=== PATIENT | female | born 1990 | race Caucasian/White ===

== ENCOUNTER 2017-01-28 10:06 | Inpatient (IN) ==
[2017-02-01] MEDS ORDERED: CARBOPROST 250 MCG/ML INJECTION IM PRN (00:47)
[2017-02-01] MEDS ORDERED: MAG-AL + SIM ORAL LIQUID 30ml PO PRN (00:47)
[2017-02-01] MEDS ORDERED: CALCIUM CARBONATE Chewable 500mg TABLET PO PRN (00:47)
[2017-02-01] MEDS ORDERED: ACETAMINOPHEN 500 MG TABLET PO PRN (00:47)
[2017-02-01] MEDS ORDERED: METHYLERGONOVINE 0.2 MG/ML INJECTION IM PRN (00:47)
--- OUTSIDE RECORDS SUMMARY | 2017-02-01 00:52 | External Medical Summary | Continuity of Care Document ---
:1990 Author Organization [facility] Address [address] [place], [place] [id number] Phone Care Team Providers Name Role Phone Junitoshraddha DO, Ora Unavailable Unavailable Allergies, Adverse Reactions, Alerts Substance Reaction Severity Status hydrocortisone rash Unknown Active Medications Medication Instructions Dosage Effective Dates Status Comments (start - stop) Vitamin take 1 tablet by Not Available - Active tablet oral route every day Fdgb-Vrhm-Ysdnn - Active (vit C-biotin) 50 mg-1,250 mcg chewable tablet Problems Condition Effective Dates (start - stop) Clinical Status Encntr for suprvsn of normal first - preg, third trimester 32 weeks gestation of - Encntr screen for infections w sexl - mode of transmiss Encounter for screening for oth - infec/parastc diseases Encntr for suprvsn of normal first - preg, first trimester Encounter for screening of - mother 9 weeks gestation of - Matern care for oth or susp poor fetl - grth, 1st tri, unsp 13 weeks gestation of - Matern care for oth or susp poor fetl - grth, 2nd tri, unsp Encntr for suprvsn of normal first - preg, second trimester 18 weeks gestation of - Encntr for suprvsn of normal first - preg, second trimester 18 weeks gestation of - Encntr for suprvsn of normal first - preg, second trimester 22 weeks gestation of - Encntr for suprvsn of normal first - preg, second trimester 24 weeks gestation of - Encntr for suprvsn of normal first - preg, second trimester 26 weeks gestation of - Encntr for suprvsn of normal first - preg, third trimester 28 weeks gestation of - Type B blood, Rh negative - Encntr for suprvsn of normal first - preg, third trimester 30 weeks gestation of - Encntr for suprvsn of normal first - preg, third trimester 34 weeks gestation of - Procedures Procedure Date OB Visit No Charge Results Test Name Date and Time Measure Units Reference Range Abnormal Flag Comments Unknown Advance Directives Directive Yes / No Effective Date File Name Unknown Encounters Encounter Practice Location Reason(s) Diagnoses Date Provider Care Team Description For Visit Members Lola Ledezma Encntr for Dec- Wan Referring In Womens suprvsn of normal 8-201 Sherrie. Provider: Estela TANG, first preg, third 7 700 Ora [address] [email or web address] weeks [facility], 1522, gestation of Center [address] [place] [address], [place], 120, [place] [id number], [place], [address], [place], tel: [phone] [place], [phone]. [phone] , [place]. tel: tel: [phone] Lola Ledezma Encntr for Nov- Wan Referring In Womens suprvsn of normal 4-201 Sherrie. Provider: Estela TANG, first preg, third 7 700 Ora PO Box [email or web address] weeks Medical Sleshraddha B, 1522, gestation of Center [address] [place] [address], [place] [facility], 120, Center [id number], [place], [address], [place], tel: [phone] [place], [phone]. [id number] , [place]. tel: tel: [phone] Lola Ledezma Encntr for Aug-1 Wan Referring In Womens suprvsn of normal 1-201 Sherrie. Provider: Health KITTY, first preg, third 7 700 Ora PO Box [email or web address] weeks Medical Sle[place]ta B, 1522, gestation of Center [address], [place], 120, [place] [id number], [place], [address], [place], tel:[phone] [place], [address] , [place]. tel: tel: [phone] Lola Ledezma Encntr for Pradeep-2 Wan Referring In Womens suprvsn of normal 8-201 Sherrie. Provider: Estela TANG, first preg, third 7 700 Ora PO Box [email or web address] weeks Medical [place]ta B, 1522, gestation of Center [address] [place] [address], pregnancyType B [place], blood, Rh 120, Center [id number], negative [place], [address], [place], tel:[phone] [place], [address]. , [place]. tel: tel: [phone] Lola Ledezma Encntr for Pradeep-1 Wan Referring In Womens suprvsn of normal 3-201 Sherrie. Provider: Estela TANG, first preg, 7 700 Ora PO Box second Medical [place], 1522, [email or web address] weeks Center [address], gestation of [place], 120, Center [id number], [place], [address], [place], tel:[phone] [place], [address]. , [place]. tel: tel: [phone] Lola Ledezma Encntr for Shayan-2 Goldberg Referring In Womens suprvsn of normal 7-201 Elvia. Provider: Estela TANG, first preg, 7 700 Ora PO Box second Medical [place], 1522, [email or web address] weeks Center [address], gestation of [place], 120, Center [id number], [place], [address], [place], tel:[phone] [place], [address]. , [place]. tel: tel: [phone] Lola Ledezma Encntr for Shayan- Wan Referring In Womens suprvsn of normal Sherrie. Provider: Estela TANG, first preg, 7 700 Ora PO Box second Medical [place] B, 1522, [email or web address] weeks Center [address], gestation of [place], 120, Center [id number], [place], [address], [place], tel:[phone] [place], [address] , [place]. tel: tel: [phone] Lola Ledezma Encntr for May- Wan Referring In Womens suprvsn of normal Sherrie. Provider: Estela TANG, first preg, 7 700 Ora PO Box second Medical [place] B, 1522, [email or web address] weeks Center [address] [place] [address], gestation of [place], 120, Center [id number], [place], [address], [place], tel:[phone] [place], [address] , [place]. tel: tel: [phone] Lola Ledezma Matern care for May- Wan Referring In Womens Ultrasound oth or susp poor - Sherrie. Provider: Estela TANG, fetl grth, 2nd 7 700 Ora PO Box tri, unspEncntr Medical [facility] B, 1522, for suprvsn of Center [address], normal first [place], preg, second 120, Center [id number], [email or web address] weeks [place], [address], [place] gestation of [place], tel: [phone] [place], [address]. , [place]. tel: tel: [phone] Lola Ledezma Matern care for Apr-1 Wan Referring In Womens oth or susp poor 2-201 Sherrie. Provider: Estela TANG, fetl grth, 1st 7 700 Ora PO Box tri, [email or web address] weeks Medical Sleshraddha Kline, 1522, gestation of Center [address] [place] [address], [place], 120, Center [id number], [place], [address], [place], tel: [phone] [place], [address]. , [place]. tel: tel: [phone] [facility] [place] Encannie screen for Jun- Wan Referring In Womens infections w sexl 5-201 Sherrie. Provider: [facility], mode of 7 700 Ora [facility], 1522, r for screening [address], for oth , [facility], infec/parastc 120, Center [id number], diseasesEncntr [place], [address], [place] for suprvsn of [place], tel: normal first [phone] [place], [address]. preg, first , [place]. tel: trimesterEncounte tel: [phone] r for [phone] screening of mother9 weeks gestation of Family History Family Member Diagnosis Age At Onset No family history of Lung Disease No family history of Colon Cancer No family history of Thyroid Disorder No family history of Osteoporosis No family history of Diabetes No family history of Uterine Cancer No family history of Hypertension No family history of Stroke No family history of Epilepsy Maternal grandmother Cancer, breast 80 No family history of Cardiovascular Disease No family history of Ovarian Cancer Maternal Grandmother Alzheimers No family history of Kidney Disease Immunizations Vaccine Date Status Comments Tdap completed Source: Source Unspecified Rhophylac completed Source: New Immunization Record Payers Payer name Insurance type Covered republican ID Authorization(s) [facility] [id number] [facility] [id number] Social History Type Description Quantity Date Captured Alcohol Use Details No Caffeine Use Details Unknown Tobacco Use Status Never smoked tobacco Smoking Status Never smoker Vital Signs Date / Height Weight BMI Pulse Blood Temperature Respiratory Body Head BMI Time: Rate Pressure Rate Surface Circumference percentile Area 150.00 26.5 /2017 lbs 7 mm[Hg] 11:06 kg/m AM eter (2) Chief Complaint And Reason For Visit Unknown Chief Complaint And Reason For Visit Reason For Referral Reason For Referral Unknown Plan Of Care Date Type Action Status Appointment Joya Stewart BOOKED Future Order: Radiology Order Complete OB Ultrasound > 14 Ordered Weeks ([id number]) Date Type Problem Goal Intervention Status Start Date Unknown. History Of Present Illness Encounter Date Complaint History Of Present Illness This patient has no known history of present illness Functional Status Encounter Date Functional Assessment Cognitive Assessment Unknown Medications Administered Medication Instructions Dosage Effective Dates (start - stop) Status Comments Drug Treatment Unknown Instructions Date Instruction Additional Information ACOG Book 2nd Trim Quad Screen pamphlet RH Neg ACOG pamphlet HIV and other routine tests risk factors identified by history anticipated course of care nutrition and weight gain counseling, special diet toxoplasmosis precautions (cats / raw meat) sexual activity exercise indications for ultrasound influenza vaccine environmental / work hazards travel tobacco (ask, advise, assess, assist and arrange) alcohol illicit / recreational drugs use of any medications (including supplements, vitamins, herbs, OTC drugs) smoking counseling domestic violence seat belt use childbirth classes / hospital facilities hospital registration genetic testing new ob handbook Zika virus assessment & precautions
--- OUTSIDE RECORDS SUMMARY | 2017-02-01 00:52 | External Medical Summary | Continuity of Care Document ---
:1990 Author Organization [facility] Address [address] [place], [place] [id number] Phone Care Team Providers Name Role Phone Antmateo DO, Ora Unavailable Unavailable Allergies, Adverse Reactions, Alerts Substance Reaction Severity Status hydrocortisone rash Unknown Active Medications Medication Instructions Dosage Effective Dates Status Comments (start - stop) Vitamin take 1 tablet by Not Available - Active tablet oral route every day Gndi-Fpfm-Lfirh - Active (vit C-biotin) 50 mg-1,250 mcg chewable tablet Problems Condition Effective Dates (start - stop) Clinical Status Decreased movements, third - trimester, unsp 37 weeks gestation of - Encntr screen for [...] second trimester 18 weeks gestation of - Decreased movements, third - trimester, unsp 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 - complicating 40 weeks gestation of - Encntr for suprvsn [...] of normal first - preg, third trimester 37 weeks gestation of - Encntr for suprvsn of normal first - preg, third trimester 34 weeks gestation of - Encntr for suprvsn of normal first - preg, third trimester 30 weeks gestation of - Encntr for suprvsn of normal first - preg, third trimester 38 weeks gestation of - Encntr for suprvsn of normal first - preg, third trimester 32 weeks gestation of - Encntr for suprvsn of normal first - preg, third trimester 39 weeks gestation of - Encntr for suprvsn of normal first - preg, third trimester 28 weeks gestation of - Type B blood, Rh negative - Encntr for suprvsn of normal first - preg, third trimester Encounter for screening of - mother 36 weeks gestation of - Procedures Procedure Date non-stress test 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 Provider: Health PA, trimester, 7 700 Ora PO Box unspStreptococcus [facility], 1522, B carrier state Center [address] [place] [address], complicating , [place], [email or web address] weeks 120, Center [id number], gestation of [place], [address], [place], tel:+ [phone] [place], [address]. [address] , [place]. tel: tel: [phone] Lola Ledezma Encntr for Oct-1 Wan Referring In [facility]ens [facility] normal 2-201 Sherrie. Provider: Health KITTY, first preg, third 7 700 Ora PO Box [email or web address] weeks [facility], 1522, gestation of Center [facility] [place], , [place], 120, Center [id number], [place], [address], [place], tel:+ [phone] [place], [address]. [address] , [place]. tel: tel: [phone] Parkr for Oct-0 Wan Referring In Women suprvsn of normal 3-201 Sherrie. Provider: Health IKTTY, first preg, third 7 700 Ora PO Box [email or web address] weeks Medical [facility], 1522, gestation of Center [facility] [place], [place], 120, Center [id number], [place], [address], [place], tel:+ [phone] [place], [address]. [address] , [place]. tel: tel: [phone] Parkr for Sep-2 Wan Referring In Women suprvsn of normal 8-201 Sherrie. Provider: Health KITTY, first preg, third 7 700 Ora PO Box [email or web address] weeks [facility], 1522, gestation of Center [address] [place] [address], [place], 120, Center [id number], [place], [address], [place], tel:+ [phone] [place], [phone]. [phone] , [place]. tel: tel: [phone] Lola Ledezma Decreased Sep-2 Niño Referring In Womens movements, third 7-201 Kya. Provider: Health PA, trimester, unsp37 7 700 Ora PO Box weeks gestation [facility] [place], 1522, of Center [facility] [place], , [facility], 120, Center [id number], [place], [address], [place], tel:+ [phone] [place], [address]. , [place]. tel: tel: [phone] Lola Ledezma Encntr for Sep-2 Wan Referring In Womens suprvsn of normal 1-201 Sherrie. Provider: Health KITTY, first preg, third 7 700 Ora PO Box trimesterEncounte [facility], 1522, r for Center [address] [place] [address], screening of , [facility] [place], [email or web address] weeks 120, Center [id number], gestation of [place], [address], [place], tel:[phone] [place], [address]. , [place]. tel: tel: [phone] Lola Parkr for Sep-0 Wan Referring In Womens suprvsn of normal 8-201 Sherrie. Provider: Estela TANG, first preg, third 7 700 Ora PO Box [email or web address] weeks [facility], 1522, gestation of Center [address] [place] [address], , [place], 120, Center [id number], [place], [address], [place], tel:[phone] [place], [address]. , [place]. tel: tel: [phone] Lola Lubinntr for Aug-2 Wan Referring In Womens suprvsn of normal 4-201 Sherrie. Provider: Health KITTY, first preg, third 7 700 Ora PO Box weeks [facility], 1522, gestation of Center [address] [place] [address], , [place], 120, Center [id number], [place], [address], [place], tel:[phone] [place], [address]. , [place]. tel: tel: [phone] Lola Ledezma Encntr for Aug- Wan Referring In Womens suprvsn of normal 1-201 Sherrie. Provider: Health PA, first preg, third 7 700 Ora PO Box [email or web address] weeks Medical [place]ta B, 1522, gestation of Center [address] [place], [place], 120, Center [id number], [place], [address], [place], tel:[phone] [place], [address] , [place]. tel: tel: [phone] Lola Ledezma Encntr for Oct-2 Wan Referring In Womens suprvsn of normal 8-201 Sherrie. Provider: Health KITTY, first preg, third 7 700 Ora PO Box [id number] weeks Medical [place] B, 1522, gestation of Center [address] [place] [address], pregnancyType B [place], blood, Rh 120, Center [id number], negative [place], [address], [place], tel:[phone] [place], [address]. , [place]. tel: tel: [phone] Lola Ledezma Encntr for Oct- Wan Referring In Womens suprvsn of normal 3-201 Sherrie. Provider: Estela TANG, first preg, 7 700 Ora PO Box second Medical [place], 1522, [email or web address] weeks [facility], gestation of [place], 120, Center [id number], [place], [address], [place], tel:[phone] [place], [address]. , [place]. tel: tel: [phone] Lola Ledezma Encntr for Shayan-2 Goldberg Referring In Womens suprvsn of normal 7-201 Elvia. Provider: Health KITTY, first preg, 7 700 Ora PO Box second Medical [place] B, 1522, [email or web address] weeks Center [address] [place], gestation of [place], 120, Center [id number], [place], [address], [place], tel:[phone] [place], [address] , [place]. tel: tel: [phone] Lola Ledezma Encntr for Shayan-1 Wan Referring In Womens suprvsn of normal 4-201 Sherrie. Provider: Health KITTY, first preg, 7 700 Ora PO Box second Medical [place] B, 1522, [email or web address] weeks Center [address] [place], gestation of [place], 120, Center [id number], [place], [address], [place], tel: [phone] [place], [address]. , [place]. tel: tel: [phone] Lola Ledezma Encntr for May- Wan Referring In Womens suprvsn of normal 7-201 Sherrie. Provider: Estela TANG, first preg, 7 700 Ora PO Box second Medical [place], 1522, [email or web address] weeks Center [address] [place], gestation of [place], 120, Center [id number], [place], [address], [place], tel:[phone] [place], [address]. , [place]. tel: tel: [phone] Lola Ledezma Matern care for May- Wan Referring In Womens Ultrasound oth or susp poor 7-201 Sherrie. Provider: Estela TANG, fetl grth, 05 22 700 Ora PO Box tri, unspEncntr Medical [facility] B, 1522, for suprvsn of Center [address] [place], normal first [place], preg, second 120, Center [id number], [id number] weeks [place], [address], [place] gestation of [place], tel: [phone] [place], [address]. , [place]. tel: tel: [phone] Lola Ledezma Matern care for Apr-1 Wan Referring In Womens oth or susp poor 2-201 Sherrie. Provider: Estela TANG, fetl grth, 7 700 Ora PO Box tri, [email or web address] weeks Medical [facility], 1522, gestation of Center [address] [place], [place], 120, Center [id number], [place], [address], [place] tel: [phone] [place], [phone]. [id number] , [place]. tel: tel: [phone] [facility] [place] Encntrafat screen for Jun- Wan Referring In Womens infections w sexl 5-201 Sherrie. Provider: Health PA, mode of 7 700 Ora PO Box transmissEncounte Medical [place] B, 1522, r for screening Center [address] [place], for oth , [facility] Medical [place] infec/parastc 120, Center [id number], diseasesEncntr [place], [address], [place] for suprvsn of [place], tel: normal first [phone] [place], [address]. [address] preg, first , [place]. tel: trimesterEncounte tel: [phone] r for [phone] screening of mother9 weeks gestation of Family [...] Kidney Disease Immunizations Vaccine Date Status Comments Influenza, injectable, completed Source: New Immunization Record quadrivalent, preservative free, 3 yrs or older Tdap completed Source: Source Unspecified Rhophylac completed Source: New Immunization Record Payers Payer name Insurance type Covered alliance party ID Authorization(s) [facility] [id number] [facility] [id number] [facility] [id number] Social History Type Description Quantity Date Captured Alcohol Use Details No Caffeine Use Details Unknown Tobacco Use Status Unknown Smoking Status Never smoker Vital Signs Date / Height Weight BMI Pulse Blood Temperature Respiratory Body Head BMI Time: Rate Pressure Rate Surface Circumference percentile Area 158.60 28.0 131/88 lbs 9 mm[Hg] 11:12 kg/m AM eter (2) Chief Complaint And Reason For Visit Unknown Chief Complaint And Reason For Visit Reason For Referral Reason For Referral Unknown Plan Of Care Date Type Action Status Appointment Marthajalen Joya BOOKED Future Order: Radiology Order Complete OB Ultrasound > 14 Ordered Weeks ([id number]) Date Type Problem Goal Intervention Status Start Date Unknown. History Of Present Illness Encounter Date Complaint History Of Present Illness This patient has no known history of present illness Functional Status Encounter Date Functional Assessment Cognitive Assessment Unknown Medications Administered Medication Instructions Dosage Effective Dates (start - stop) Status Comments Drug Treatment Unknown Instructions Date Instruction Additional Information labor signs group B strep screening ACOG Book 2nd Trim Quad Screen pamphlet [...]
--- OUTSIDE RECORDS SUMMARY | 2017-02-01 00:52 | External Medical Summary | Continuity of Care Document ---
:1990 Author Organization [facility] Address [address] [place], [place] [address] Phone Care Team Providers Name Role Phone Paty DO, Ora Unavailable Unavailable Allergies, Adverse Reactions, Alerts Substance Reaction Severity Status hydrocortisone rash Unknown Active Medications Medication Instructions Dosage Effective Dates Status Comments (start - stop) Vitamin take 1 tablet by Not Available - Active tablet oral route every day Dyjp-Dhev-Lvwtg - Active (vit C-biotin) 50 mg-1,250 mcg chewable tablet Problems Condition Effective Dates (start - stop) Clinical Status Encntr for suprvsn of normal first - preg, second trimester 26 weeks gestation of - Encntr screen for [...] - Type B blood, Rh negative - Procedures Procedure Date OB Visit No Charge Results Test Name Date and Time Measure Units Reference Range Abnormal Flag Comments Unknown Advance Directives Directive Yes / No Effective Date File Name Unknown Encounters Encounter Practice Location Reason(s) Diagnoses Date Provider Care Team Description For Visit Members Lola Lubinntr for Oct- Wan Referring In Womens suprvsn of normal 8-201 Sherrie. Provider: Estela TANG, first preg, third 7 700 Ora [address] [id number] [facility] 15[facility], gestation of Center [address] [place] [address], pregnancyType B [place], blood, Rh 120, [place] [id number], negative [place], [address], [place], tel:[phone] [place], [address]. [address] , [place]. tel:+ tel: [phone] Lola Lubinntr for Oct- Wan Referring In Womens suprvsn of normal 3-201 Sherrie. Provider: Estela TANG, first preg, 7 700 Ora PO Box second Medical Slechta B, 1522, [email or web address] weeks Center [facility] [place], gestation of [place], 120, [place] [id number], [place], [address], [place], tel:+ [phone] [place], [address]. [address] , . tel:316 tel: [phone] Lola [place] Encntr for Sep- Goldberg Referring In Womens suprvsn of normal 7-201 Elvia. Provider: Estela TANG, first preg, 7 700 Ora PO Box second Medical Sle[place]ta B, 1522, [email or web address] weeks Center 700 [place], gestation of [place], 120, Center [id number], [address], [place], tel:[phone] [place], [address] , [place]. tel: tel: [phone] Lola [place] Encntr for Shayan-1 Wan Referring In Womens suprvsn of normal 4-201 Sherrie. Provider: Esetla TANG, first preg, 7 700 Ora PO Box second Medical Sle[place]ta [place], 1522, weeks Center Chance Cardenas, gestation of [place], 120, Center [id number], [address], [place], tel:[phone] [place], [address] , [place]. tel: tel: [phone] Lola [place] Encntr for May-1 Wan Referring In Womens suprvsn of normal 7-201 Sherrie. Provider: Estela TANG, first preg, 7 700 Ora PO Box second Medical Sle[place]ta B, 1522, [email or web address] weeks Center 700 [place], gestation of [place], 120, Center [id number], [address], [place], tel:[phone] [place], , [place]. tel: tel: [phone] Lola [place] Matern care for May-1 Wan Referring In Womens Ultrasound oth or susp poor 7-201 Sherrie. Provider: Estela TANG, shakeel kasper, 2nd 7 700 Ora PO Box tri, unspEncntr Medical Slecht B, 1522, for suprvsn of Center 700 [place], normal first [place], preg, second 120, Center [id number], [email or web address] weeks [place], [address], [place] gestation of [place], tel: [phone] [place], [address]. , [place]. tel: tel: [phone] Lola [place] Matern care for Apr-1 Wan Referring In Womens oth or susp poor 2-201 Sherrie. Provider: Estela TANG fetl ranjith, 1st 7 700 Ora PO Box tri, [email or web address] weeks Medical Slechta B, 1522, gestation of Center 700 [place], , Mor [facility] [place], 120, Center [id number], [place], [address], [place], tel: [phone] [place], [address]. , [place]. tel: tel: [phone] [facility] [place] Encannie screen for Mar-1 Wan Referring In Womens infections w sexl 5-201 Sherrie. Provider: [facility], mode of 7 700 Ora PO Box transmissEncounte [facility], 1522, r for screening Center 700 [place], for oth , Mor [facility] [place], infec/parastc 120, Center [id number], diseasesEncntrafat [place], [address], [place] for suprvsn of [place], tel: normal first [phone] [place], [address]. preg, first , [place]. tel: trimesterEncounte tel: [phone] r for [phone] screening of mother9 weeks gestation of Family [...] Kidney Disease Immunizations Vaccine Date Status Comments Rhophylac completed Source: New Immunization Record Payers Payer name Insurance type Covered constitution party ID Authorization(s) [facility] [id number] [facility] [id number] Social History Type Description Quantity Date Captured Alcohol Use Details No Caffeine Use Details Unknown Tobacco Use Status Unknown Smoking Status Never smoker Vital Signs Date / Height Weight BMI Pulse Blood Temperature Respiratory Body Head BMI Time: Rate Pressure Rate Surface Circumference percentile Area 142.50 25.2 109/71 -2016 lbs 4 mm[Hg] 11:14 kg/m AM eter (2) 25.0 6 11:03 kg/m AM sherman (2) Chief Complaint And Reason For Visit Unknown Chief Complaint And Reason For Visit Reason For Referral Reason For Referral Unknown Plan Of Care Date Type Action Status Appointment Marthajalen Joya BOOKED Future Order: Radiology Order Complete OB Ultrasound > 14 Ordered Weeks ([id number]) Date Type Problem Goal Intervention Status Start [...]
--- OUTSIDE RECORDS SUMMARY | 2017-02-01 00:52 | External Medical Summary | Continuity of Care Document ---
:1990 Author Organization [facility] Address [address] [place], [place] [address] Phone Care Team Providers Name Role Phone Antmateo DO, Ora Unavailable Unavailable Allergies, Adverse Reactions, Alerts Substance Reaction Severity Status hydrocortisone rash Unknown Active Medications Medication Instructions Dosage Effective Dates Status Comments (start - stop) Vitamin take 1 tablet by Not Available - Active tablet oral route every day Vqdx-Sxkt-Zukuh - Active (vit C-biotin) 50 mg-1,250 mcg chewable tablet Problems Condition Effective Dates (start - stop) Clinical Status Encntr screen for infections w sexl - [...] - Decreased movements, third - trimester, unsp 37 weeks gestation of - Decreased movements, third [...] weeks gestation of - Procedures Procedure Date Unknown Results Test Name Date and Time Measure Units Reference Range Abnormal Flag Comments Unknown Advance Directives Directive Yes / No Effective Date File Name Unknown Encounters Encounter Practice Location Reason(s) Diagnoses Date Provider Care Team Description For Visit Members [facility] [place] Decreased Jan- Wan Referring In Womens movements, third 7-201 Sherrie. Provider: [facility], [facility], trimester, 7 700 Ora PO Box [facility] Medical Sle[facility]ta [facility], 1522, B carrier state Center [address] [place] [address], complicating , [place], [id number] weeks 120, Center [id number], gestation of [place], [address], [place], tel:[phone] [place], [address]. , [place]. tel: tel: [phone] Lola [place] Encntr for Oct-1 Wan Referring In Womens suprvsn of normal 2-201 Sherrie. Provider: Health KITTY, first preg, third 7 700 Oar PO Box [email or web address] weeks [facility], 1522, gestation of Center [address] [place] [address], , Mor [facility] [place], 120, Center [id number], [place], [address], [place], tel:[phone] [place], [address]. , [place]. tel: tel: [phone] Lola [place] Encntr for Oct-0 Wan Referring In Womens suprvsn of normal 3-201 Sherrie. Provider: Estela TANG, first preg, third 7 700 Ora PO Box [id number] weeks [facility], 1522, gestation of Center [address] [place] [address], [place], 120, Center [id number], [place], [address], [place], tel:[phone] [place], [address]. , [place]. tel: tel: [phone] Lola [place] Encntr for Sep-2 Wan Referring In Womens suprvsn of normal 8-201 Sherrie. Provider: Estela TANG, first preg, third 7 700 Ora PO Box [email or web address] weeks Medical Sle[place]ta B, 1522, gestation of Center [address] [place] [address], , Mor [facility] [place], 120, Center [id number], [place], [address], [place], tel:[phone] [place], [address]. , [place]. tel: tel: [phone] Lola [place] Decreased Sep-2 Niño Referring In Womens movements, third 7-201 Kya. Provider: Health KITTY, trimester, unsp37 7 700 Ora PO Box weeks gestation [facility], 1522, of Center [facility] Dr Ronald, [facility], 120, Center [id number], [place], [address], [place], tel:+ [phone] [place], [address]. , [place]. tel: tel: [phone] Lola [place] Sep-2 Wan In Womens 7-201 Sherrie. [facility], 7 700 PO Box Medical 1522, Center [place], , [facility] [place], 120, [id number], [place], [place], tel: [phone] , [place]. tel: [phone] Lola [place] Encntr for Sep-2 Wan Referring In Womens suprvsn of normal 1-201 Sherrie. Provider: Health KITTY, first preg, third 7 700 Ora PO Box trimesterEncounte [facility], 1522, r for Center [facility] [place], screening of Dr [facility] Gurpreet [place], [email or web address] weeks 120, Center [id number], gestation of [place], [address], [place], tel: [phone] [place], [address]. , [place]. tel: tel: [phone] Lola [place] Encntr for Sep-0 Wan Referring In Womens suprvsn of normal 8-201 Sherrie. Provider: Health KITTY, first preg, third 7 700 Ora PO Box [email or web address] weeks Medical [facility], 1522, gestation of Center [facility] [place], , [facility], 120, Center [id number], [place], [address], [place], tel: [phone] [place], [address]. , [place]. tel: tel: [phone] Lola [place] Encntr for Aug-2 Wan Referring In Womens suprvsn of normal 4-201 Sherrie. Provider: Health KITTY, first preg, third 7 700 Ora PO Box [email or web address] weeks Medical [facility] , 1522, gestation of Center [facility] [place], , [facility], 120, Center [id number], [address], [place], tel:+ [phone] [place], [address]. , [place]. tel: tel: [phone] Lola [place] Encntr for Aug-1 Wan Referring In Womens suprvsn of normal 1-201 Sherrie. Provider: Health KITTY, first preg, third 7 700 Ora PO Box [id number] weeks Medical [facility], 1522, gestation of Center [address] [place] [address], , [facility], 120, Center [id number], [place], [address], [place], tel:+ [phone] [place], [address]. , [place]. tel: tel: [phone] Lola [place] Encntr for Pradeep-2 Wan Referring In Womens suprvsn of normal 8-201 Sherrie. Provider: Estela TANG, first preg, third 7 700 Ora PO Box [id number] weeks [facility], 1522, gestation of Center [address] [place] [address], pregnancyType B , [facility] [place], blood, Rh 120, Center [id number], negative [place], [address], [place], tel:+ [phone] [place], [address]. [address] , [place]. tel: tel: [phone] Lola [place] Encntr for Oct-1 Wan Referring In Womens suprvsn of normal 3-201 Sherrie. Provider: Estela TANG, first preg, 7 700 Ora PO Box second Medical Sle[place]ta B, 1522, [email or web address] weeks Center [facility] [place], gestation of [place], 120, Center [id number], [place], [address], [place], tel: [phone] [place], [address]. [address] , [place]. tel: tel: [phone] Lola [place] Encntr for Shayan-2 Goldberg Referring In Womens suprvsn of normal 7-201 Elvia. Provider: Estela TANG, first preg, 7 700 Ora PO Box second Medical Sle[place]ta B, 1522, [id number] weeks Center 700 [place], gestation of [place], 120, Center [id number], [address], [place], tel:[phone] [place], [address]. , [place]. tel: tel: [phone] Lola [place] Encntr for Shayan-1 Wan Referring In Womens suprvsn of normal 4-201 Sherrie. Provider: Estela TANG, first preg, 7 700 Ora PO Box [facility] Medical Slechta B, 1522, [email or web address] weeks Center 700 [place], gestation of [place], 120, Center [id number], [place], [address], [place], tel:[phone] [place], [address]. , [place]. tel: tel: [phone] Lola [place] Encntr for May-1 Wan Referring In Womens suprvsn of normal 7-201 Sherrie. Provider: Estela TANG, first preg, 7 700 Ora PO Box [facility] Medical Slechta B, 1522, [email or web address] weeks Center [address] [place] [address], gestation of [place], 120, Center [id number], [address], [place], tel:[phone] [place], [address]. , [place]. tel: tel: [phone] Lola [place] Matern care for May-1 Wan Referring In Womens Ultrasound oth or susp poor 7-201 Sherrie. Provider: shakeel Vela, Ora PO Box tri, unspEncntr Medical Sle[place]ta B, 1522, for suprvsn of Center 700 [place], normal first [place], preg, second 120, Center [id number], [email or web address] weeks [place], [address], [place] gestation of [place], tel: [phone] [place], [address]. , [place]. tel: tel: [phone] Lola [place] Matern care for Apr-1 Wan Referring In Womens oth or susp poor 2-201 Sherrie. Provider: shakeel Vela, 1st 7 700 Ora PO Box tri, [email or web address] weeks Medical Sle[place]ta B, 1522, gestation of Center 700 [place], , [facility] [place], 120, Center [id number], [place], [address], [place], tel:+ [phone] [place], [address]. , [place]. tel: tel: [phone] [facility] [place] Encrafat screen for Jun- Wan Referring In Womens infections w sexl 5-201 Sherrie. Provider: Estela TANG, mode of 7 700 Ora PO Box transmissEncounte Medical Sleshraddha B, 1522, r for screening Center 700 [place], for oth , [facility] [place], infec/parastc 120, Center [id number], diseasesEncntr [place], [address], [place] for suprvsn of [place], tel: normal first [phone] [place], [address]. preg, first , [place]. tel: trimesterEncounte tel: [phone] r for [phone] screening of mother9 weeks gestation of Family [...] Insurance type Covered alliance party ID Authorization(s) [facility] [place] [id number] [facility] [id number] [facility] [id number] Social History Type Description Quantity Date Captured Unknown Vital Signs Date / Height Weight BMI Pulse Blood Temperature Respiratory Body Head BMI Time: Rate Pressure Rate Surface Circumference percentile Area Unknown Chief Complaint And Reason For Visit Unknown Chief Complaint And Reason For Visit Reason For Referral Reason For Referral Unknown Plan Of Care Date Type Action Status Appointment Joya Stewart BOOKED Future Order: Radiology Order Complete OB Ultrasound > 14 Ordered Weeks ([id number]) Date Type Problem Goal Intervention Status Start [...]
--- OUTSIDE RECORDS SUMMARY | 2017-02-01 00:52 | External Medical Summary | Continuity of Care Document ---
:1990 Author Organization [facility] Address [address] [place], [place] [address] Phone Care Team Providers Name Role Phone Junitoshraddha DO, Ora Unavailable Unavailable Allergies, Adverse Reactions, Alerts Substance Reaction Severity Status hydrocortisone rash Unknown Active Medications Medication Instructions Dosage Effective Dates Status Comments (start - stop) Vitamin take 1 tablet by Not Available - Active tablet oral route every day Opvt-Hsbt-Cdvre - Active (vit C-biotin) 50 mg-1,250 mcg chewable tablet Problems Condition Effective Dates (start - stop) Clinical Status Encntr for suprvsn of normal first - preg, third trimester 30 weeks gestation of - Encntr screen for [...] of normal first - preg, third trimester Type B blood, Rh negative - weeks gestation of - Encntr for suprvsn of normal first - preg, third trimester 32 weeks gestation of - Procedures Procedure Date OB Visit No Charge Results Test Name Date and Time Measure Units Reference Range Abnormal Flag Comments Unknown Advance Directives Directive Yes / No Effective Date File Name Unknown Encounters Encounter Practice Location Reason(s) Diagnoses Date Provider Care Team Description For Visit Members Lola Partida for Wan Referring In Womens suprvsn of normal 4-201 Sherrie. Provider: Health KITTY, first preg, third 7 700 Ora PO Box [email or web address] weeks Medical Paty Kline, 1522, gestation of Center [address] [place] [address], , [facility], 120, [place] [id number], [place], [address], [place], tel:+ [phone] [place], [address]. [address] , [place]. tel: tel: [phone] Lola Partida for Wan Referring In Womens suprvsn of normal 1-201 Sherrie. Provider: Health KITTY, first preg, third 7 700 Ora PO Box [email or web address] weeks Medical Paty Kline, 1522, gestation of Center 700 [place], [place] [facility] [place], 120, [place] [id number], [place], [address], [place], tel:+ [phone] [place], [address]. [address] , [place]. tel: tel: [phone] Lola Partida for Wan Referring In Womens suprvsn of normal 8-201 Sherrie. Provider: Health PA, first preg, third 7 700 Ora PO Box trimesterType B Medical Slechta B, 1522, blood, Rh Center 700 [place], [id number] weeks [place], gestation of 120, Center [id number], [place], [address], [place], tel:+ [phone] [place], [address]. , [place]. tel: tel: [phone] Luis [place] Encntr for Oct-1 Wan Referring In Womens suprvsn of normal 3-201 Sherrie. Provider: Health PA, first preg, 7 700 Ora PO Box second Medical Slechta B, 1522, [id number] weeks Center Chance Cardenas, gestation of [place], 120, Center [id number], [place], [address], [place], tel:[phone] [place], [address]. [address] , [place]. tel: tel: [phone] Lola [place] Encntr for Shayan-2 Goldberg Referring In Womens suprvsn of normal 7-201 Elvia. Provider: Health KITTY, first preg, 7 700 Ora PO Box second Medical Slechta B, 1522, [email or web address] weeks Center 700 [place], gestation of [place], 120, Center [id number], [place], [address], [place], tel:[phone] [place], [address]. , [place]. tel: tel: [phone] [place] Encntr for Shayan- Wan Referring In Womens suprvsn of normal 4-201 Sherrie. Provider: Health KITTY, first preg, 7 700 Ora PO Box second Medical Slechta B, 1522, [email or web address] weeks Center Chance [place]ardenas, gestation of [place], 120, Center [id number], [address], [place], tel:[phone] [place], [address]. , [place]. tel: tel: [phone] Lola Lubinntrafat for August- Wan Referring In Womens suprvsn of normal 7-201 Sherrie. Provider: Estela TANG, first preg, 7 700 Ora PO Box second Medical [facility], 1522, [email or web address] weeks Center [address] [place] [address], gestation of [place], 120, Center [id number], [place], [address], [place], tel:+ [phone] [place], [address]. , [place]. tel: tel: [phone] Lola [place] Matern care for August- Wan Referring In Womens Ultrasound oth or susp poor 7-201 Sherrie. Provider: Estela TANG, fetl ranjith, 2nd 7 700 Ora PO Box tri, unspEncntr Medical [facility] B, 1522, for suprvsn of Center [address] [place] [address], normal first [place], preg, second 120, Center [id number], [email or web address] weeks [place], [address], [place] gestation of [place], tel:+ [phone] [place], [address]. , [place]. tel: tel: [phone] Lola [place] Matern care for Jul- Wan Referring In Womens oth or susp poor 2-201 Sherrie. Provider: Estela ATNG, shakeel kasper, 1st 7 700 Ora PO Box tri, [email or web address] weeks [facility], 1522, gestation of Center [address] [place] [address], [place], 120, Center [id number], [place], [address], [place], tel:+ [phone] [place], [address]. , [place]. tel: tel: [phone] Lola [place] Encntrafat screen for Jun- Wan Referring In Womens infections w sexl 5-201 Sherrie. Provider: Estela TANG, mode of 7 700 Ora PO Box transmissEncounte Medical Slechta B, 1522, r for screening Center [address] [place] [address], for oth [place], infec/parastc 120, Center [id number], diseasesEncntr [place], [address], [place] for suprvsn of [place] tel: normal first [phone] [place], [address]. [address] preg, first , [place]. tel: trimesterEncounte tel: [phone] r for [phone] screening of mother9 weeks gestation of Family [...] Record Payers Payer name Insurance type Covered green party ID Authorization(s) [facility] [id number] [facility] [id number] Social History Type Description Quantity Date Captured Alcohol Use Details No Caffeine Use Details Unknown Tobacco Use Status Never smoked tobacco Smoking Status Never smoker Vital Signs Date / Height Weight BMI Pulse Blood Temperature Respiratory Body Head BMI Time: Rate Pressure Rate Surface Circumference percentile Area 1 10:29 kg/m AM eter (2) 147.20 26.0 127/83 -2017 lbs 7 mm[Hg] 10:29 kg/m AM eter (2) Chief Complaint And Reason For Visit Unknown Chief Complaint And Reason For Visit Reason For Referral Reason For Referral Unknown Plan Of Care Date Type Action Status Appointment Joya Stewart BOOKED Future Order: Radiology Order Complete OB Ultrasound > 14 Ordered Weeks ([id number]) Date Type Problem Goal Intervention Status Start [...]
--- OUTSIDE RECORDS SUMMARY | 2017-02-01 00:52 | External Medical Summary | Continuity of Care Document ---
:1990 Author Organization [facility] Address [address] [place], [place] [id number] Phone Care Team Providers Name Role Phone Antmateo DO, Ora Unavailable Unavailable Allergies, Adverse Reactions, Alerts Substance Reaction Severity Status hydrocortisone rash Unknown Active Medications Medication Instructions Dosage Effective Dates Status Comments (start - stop) Vitamin take 1 tablet by Not Available - Active tablet oral route every day Xbkg-Nixm-Qwzlb - Active (vit C-biotin) 50 mg-1,250 mcg chewable tablet Problems Condition Effective Dates (start - stop) Clinical Status Encounter for screening of - mother Encntr for suprvsn of normal first - preg, third trimester 36 weeks gestation of - Encntr screen for [...] unsp 37 weeks gestation of - Encntr for [...] Procedures Procedure Date OB Visit No Charge Cult, pathgnc orgnsm, screen Results Test Name Date and Time Measure Units Reference Range Abnormal Flag Comments Panel Description: STREPTOCOCCUS, GROUP B CULTURE STREPTOCOCCUS, GROUP SEE NOTE A STREPTOCOCCUS, GROUP B CULTURE B CULTURE 09:48:00 MICRO NUMBER: [id number] TEST STATUS: FINAL SPECIMEN SOURCE: VAGINAL/ANORECTAL SPECIMEN QUALITY: ADEQUATE RESULT: Group B Streptococcus isolated Beta-hemolytic Streptococci are predictably susceptible to penicillin and other beta-lactams. Susceptibility testing not routinely performed.REPORT COMMENT:FASTING:UNKNOWNTest performed at [email or web address] [id number] [place] [address]Whxpgnnb: LIANNA SANABRIA DO,MPH Advance Directives Directive Yes / No Effective Date File Name Unknown Encounters Encounter Practice Location Reason(s) Diagnoses Date Provider Care Team Description For Visit Members Lola Ledezma Encntr for Oct-0 Wan Referring In Womens suprvsn of normal 3-201 Sherrie. Provider: Estela TANG, first preg, third 7 700 Ora [address] Box [id number] weeks Medical Slechta B, 1522, gestation of Center [address], , [facility] [place], 120, Center [id number], [place], [address], [place], tel:[phone] [place], [address]. , [place]. tel: tel: [phone] Lola Ledezma Encntr for Sep-2 Wan Referring In Womens suprvsn of normal 8-201 Sherrie. Provider: Estela TANG, first preg, third 7 700 Ora PO Box [email or web address] weeks Medical Sleshraddha B, 1522, gestation of Center [address] [place] [address], [place], 120, Center [id number], [place], [address], [place], tel:[phone] [place], [address] , [place]. tel: tel: [phone] Lola Ledezma Decreased Sep-2 Niño Referring In Womens movements, third 7-201 Kya. Provider: Estela TANG, trimester, unsp37 7 700 Ora PO Box weeks gestation Medical Sleshraddha Kline, 1522, of Center [facility] [address] [place], [place], 120, Center [id number], [place], [address], [place], tel:[phone] [place], [address] , [place]. tel: tel: [phone] Lola Ledezma Encounter for Sep-2 Wan Referring In Womens 1-201 Sherrie. Provider: Estela TANG, screening of 7 700 Ora PO Box motherEncntr for Medical Slechta B, 1522, suprvsn of normal Center [facility] [place], first preg, third [place], [email or web address] weeks 120, Center [id number], gestation of [place], [address], [place], tel: [phone] [place], [address] , [place]. tel: tel: [phone] Lola Ledezma Encntr for Sep-0 Wan Referring In Womens suprvsn of normal 8-201 Sherrie. Provider: Health KITTY, first preg, third 7 700 Ora PO Box [email or web address] weeks [facility], 1522, gestation of [address], , [facility] [place], 120, Center [id number], [place], [address], [place], tel: [phone] [place], [address] , [place]. tel: tel: [phone] Lola Ledezma Encntr for Aug-2 Wan Referring In Womens suprvsn of normal 4-201 Sherrie. Provider: Health KITTY, first preg, third 7 700 Ora PO Box [email or web address] weeks [facility], 1522, gestation of [address], , [facility] [place], 120, Center [id number], [place], [address], [place], tel: [phone] [place], [address] , [place]. tel: tel: [phone] Lola Ledezma Encntr for Aug-1 Wan Referring In Womens suprvsn of normal 1-201 Sherrie. Provider: Health KITTY, first preg, third 7 700 Ora PO Box [email or web address] weeks [facility], 1522, gestation of [address], , [facility] Gurpreet [place], 120, Center [id number], [place], [address], [place], tel: [phone] [place], [address] , [place]. tel: tel: [phone] Lola Ledezma Encntr for Pradeep-2 Wan Referring In Womens suprvsn of normal 8-201 Sherrie. Provider: Health KITTY, first preg, third 7 700 Ora PO Box [id number] weeks [facility], 1522, gestation of [address], pregnancyType B Dr [facility] [place], blood, Rh 120, Center [id number], negative [place], [address], [place], tel: [phone] [place], [address] , [place]. tel: tel: [phone] Lola Ledezma Encntr for Pradeep-1 Wan Referring In Womens suprvsn of normal 3-201 Sherrie. Provider: [facility] KITTY, first preg, 7 700 Ora PO Box second Medical Slechta B, 1522, [email or web address] weeks Center [address], gestation of [place], 120, Center [id number], [place], [address], [place], tel: [phone] [place], , [place]. tel: tel: [phone] Lola Ledezma Encntr for Shayan-2 Goldberg Referring In Womens suprvsn of normal 7-201 Elvia. Provider: Estela TANG, first preg, 7 700 Ora PO Box second Medical Slechta B, 1522, weeks Center [address], gestation of [place], 120, Center [id number] a[place]ricio, [address], [place], tel: [phone] [place], , [place]. tel: tel: [phone] Lola Ledezma Encntr for Shayan-1 Wan Referring In Womens suprvsn of normal 4-201 Sherrie. Provider: Estela TANG, first preg, 7 700 Ora PO Box second Medical Sle[facility]ta B, 1522, [email or web address] weeks Center [address], gestation of [place], 120, Center [id number], [address], [place], tel: [phone] [place], , [place]. tel: tel: [phone] Lola Ledezma Encntr for May-1 Wan Referring In Womens suprvsn of normal 7-201 Sherrie. Provider: Estela TANG, first preg, 7 700 Ora PO Box second Medical Slechta B, 1522, weeks Center [address], gestation of [place], 120, Center [id number], [place], [address], [place], tel: [phone] [place], [address]. , [place]. tel: tel: [phone] Lola Ledezma Matern care for May-1 Wan Referring In Womens Ultrasound oth or susp poor 7-201 Sherrie. Provider: Estela TANG, fetl ranjith, 2nd 7 700 Ora PO Box tri, [facility]spEncntr [facility], 1522, for suprvsn of Center [address] [place] [address], normal first [place], preg, second 120, Center [id number], [email or web address] weeks [place], [address], [place] gestation of [place], tel:+ [phone] [place], [address]. , [place]. tel: tel: [phone] Lola Ledezma Matern care for Apr-1 Wan Referring In Womens oth or susp poor 2-201 Sherrie. Provider: Estela TANG, [facility], 1st 7 700 Ora PO Box tri, unsp13 weeks Medical Sleshraddha [place], 1522, gestation of Center [address] [place] [address], [place], 120, Center [id number], [place], [address], [place], tel:[phone] [place], [address]. , [place]. tel: tel: [phone] Lola Ledezma Encntrafat screen for Mar-1 Wan Referring In Womens infections w sexl 5-201 Sherrie. Provider: Estela TANG, mode of 7 700 Ora PO Box transmissEncounte Medical Slechta B, 1522, r for screening Center [address] [place] [address], for oth [place], infec/parastc 120, Center [id number], diseasesEncntr [place], [address], [place] for suprvsn of [place], tel:[phone] normal first [phone] [place], [address]. preg, first , [place]. tel: trimesterEncounte tel: [phone] r for [phone] screening of mother9 weeks gestation of Family [...] Insurance type Covered constitution party ID Authorization(s) [facility] [id number] [facility] [id number] [facility] [id number] Social History Type Description Quantity Date Captured Alcohol Use Details No Caffeine Use Details Unknown Tobacco Use Status Unknown Smoking Status Never smoker Vital Signs Date / Height Weight BMI Pulse Blood Temperature Respiratory Body Head BMI Time: Rate Pressure Rate Surface Circumference percentile Area 156.20 27.6 111/80 -2017 lbs 7 mm[Hg] 9:42 kg/m AM eter (2) .9 9 9:36 kg/m AM eter (2) Chief Complaint And Reason For Visit Unknown Chief Complaint And Reason For Visit Reason For Referral Reason For Referral Unknown Plan Of Care Date Type Action Status Appointment Joya Stewart BOOKED Appointment Joya Stewart BOOKED Future Order: Radiology Order Complete OB Ultrasound > 14 Ordered Weeks ([id number]) Date Type Problem Goal Intervention Status Start [...]
--- OUTSIDE RECORDS SUMMARY | 2017-02-01 00:53 | External Medical Summary | Continuity of Care Document ---
:1990 Author Organization [facility] Address [address] [place], [place] [id number] Phone Care Team Providers Name Role Phone Junitoshraddha DO, Ora Unavailable Unavailable Allergies, Adverse Reactions, Alerts Substance Reaction Severity Status hydrocortisone rash Unknown Active Medications Medication Instructions Dosage Effective Dates Status Comments (start - stop) Vitamin take 1 tablet by Not Available - Active tablet oral route every day Vvua-Yobf-Egjhv - Active (vit C-biotin) 50 mg-1,250 mcg chewable tablet Problems Condition Effective Dates (start - stop) Clinical Status Encntr for suprvsn of normal first - preg, third trimester 37 weeks gestation of - Encntr screen [...] Procedures Procedure Date OB Visit No Charge Immuniz admnin, 1 vac, sngl/combo 19 Yrs + Flu Vaccine - Quadrivalent Results Test Name Date and Time Measure Units Reference Range Abnormal Flag Comments Unknown Advance Directives Directive Yes / No Effective Date File Name Unknown Encounters Encounter Practice Location Reason(s) Diagnoses Date Provider Care Team Description For Visit Members Lola Ledezma Decreased Oct-1 Wan Referring In Womens movements, third 7-201 Sherrie. Provider: Health KITTY, trimester, 7 [address] Ora [address] [facility], 1522, B carrier state Center [address] [place] [address], complicating [place], [id number] weeks 120, Center [id number], gestation of [place], [address], [place], tel:[phone] [place], [address] , [place]. tel: tel: [phone] Lola Ledezma Encntr for Oct-1 Wan Referring In Womens suprvsn of normal 2-201 Sherrie. Provider: Estela TANG, first preg, third 7 700 Ora PO Box [id number] [facility], 1522, gestation of [address], [place] [facility] [place], 120, Center [id number], [place], [address], [place], tel:[phone] [place], [address]. , [place]. tel: tel: [phone] Lola Ledezma Encntr for Oct-0 Wan Referring In Womens suprvsn of normal 3-201 Sherrie. Provider: Estela TANG, first preg, third 7 700 Ora PO Box [id number] [facility], 1522, gestation of [address], [place], 120, Center [id number], [place], [address], [place], tel:[phone] [place], [address]. , [place]. tel: tel: [phone] Lola Ledezma Encntr for Sep-2 Wan Referring In Womens suprvsn of normal 8-201 Sherrie. Provider: Estela TANG, first preg, third 7 700 Ora PO Box [id number] [facility], 1522, gestation of Center [address] [place] [address], [place] [facility] [place], 120, Center [id number], [address], [place], tel:[phone] [place], [address] , [place]. tel: tel: [phone] Lola Ledezma Decreased Sep-2 Niño Referring In Womens movements, third 7-201 Kya. Provider: Health KITTY, trimester, unsp37 7 700 Ora PO Box weeks gestation [facility], 1522, of Center [address] [place] [address], Dr [facility], 120, Center [id number], [place], [address], [place], tel:[phone] [place], [address] , [place]. tel: tel: [phone] Lola Ledezma Encntr for Sep-2 Wan Referring In Womens suprvsn of normal 1-201 Sherrie. Provider: [facility] KITTY, first preg, third [address] [facility], 1522, r for Center [address] [place] [address], screening of [place], [id number] weeks 120, Center [id number], gestation of [place], [address], [place], tel:[phone] [place], [address]. , [place]. tel: tel: [phone] Lola Ledezma Encntr for Sep-0 Wan Referring In Womens suprvsn of normal 8-201 Sherrie. Provider: Estela TANG, first preg, third 7 700 Ora PO Box [email or web address] [facility], 1522, gestation of Center [address] [place] [address], [place], 120, Center [id number], [place], [address], [place], tel:[phone] [place], [address]. , [place]. tel: tel: [phone] Lola Ledezma Encntr for Aug-2 Wan Referring In Womens suprvsn of normal 4-201 Sherrie. Provider: Estela TANG, first preg, third 7 700 Ora PO Box [id number] [facility], 1522, gestation of Center [address] [place] [address], [place], 120, Center [id number], [place], [address], [place], tel:[phone] [place], [address] , [place]. tel: tel: [phone] Lola Ledezma Encntr for Aug-1 Wan Referring In Womens suprvsn of normal 1-201 Sherrie. Provider: Health KITTY, first preg, third 7 700 Ora PO Box [email or web address] weeks Medical [facility]le[facility]ta B, 1522, gestation of Center [address] [place], [place], 120, Center [id number], [place], [address], [place], tel:[phone] [place], [address]. , [place]. tel: tel: [phone] Lola Ledezma Encntr for Pradeep-2 Wan Referring In Womens suprvsn of normal 8-201 Sherrie. Provider: Estela TANG, first preg, third 7 700 Ora PO Box [email or web address] weeks Medical [facility] B, 1522, gestation of Center [address] [place] [address], pregnancyType B [place], blood, Rh 120, Center [id number], negative [place], [address], [place], tel: [phone] [place], [address]. , [place]. tel: tel: [phone] Lola Ledezma Encntr for Oct-1 Wan Referring In Womens suprvsn of normal 3-201 Sherrie. Provider: Estela TANG, first preg, 7 700 Oar PO Box second Medical Sle[place]ta B, 1522, [email or web address] weeks Center [address] [place], gestation of [place], 120, Center [id number], [address], [place], tel: [phone] [place], [address]. , [place]. tel: tel: [phone] Lola Ledezma Encntr for Shayan-2 Goldberg Referring In Womens suprvsn of normal 7-201 Elvia. Provider: Estela TANG, first preg, 7 700 Ora PO Box second Medical [facility] B, 1522, [id number] weeks Center [address] [place], gestation of [place], 120, Center [id number], [place], [address], [place], tel: [phone] [place], [address]. , [place]. tel: tel: [phone] Lola Ledezma Encntr for Shayan-1 Wan Referring In Womens suprvsn of normal Sherrie. Provider: Estela TANG, first preg, 7 700 Ora PO Box second Medical [place] B, 1522, [email or web address] weeks Center [address] [place], gestation of [place], 120, Center [id number], [place], [address], [place], tel: [phone] [place], [address] , [place]. tel: tel: [phone] Lola Ledezma Encntr for May-1 Wan Referring In Womens suprn of normal Sherrie. Provider: Estela TANG, first preg, 7 700 Ora PO Box second Medical [facility]le[place] B, 1522, [email or web address] weeks Center [address] [place], [place] [address], gestation of [place], 120, Center [id number], [place], [address], [place], tel:[phone] [place], [address] , [place]. tel: tel: [phone] Lola Ledezma Matern care for May- Wan Referring In Womens Ultrasound oth or susp poor - Sherrie. Provider: Estela TANG, fetl grth, 2nd 7 700 Ora PO Box tri, unspEncntr Medical Slecht B, 1522, for suprvsn of Center [address] [place] [address], normal first [place], preg, second 120, Center [id number], [id number] weeks [place], [address], [place] gestation of [place], tel: [phone] [place], [address]. , [place]. tel: tel: [phone] Lola Ledezma Matern care for Apr-1 Wan Referring In Womens oth or susp poor 2- Sherrie. Provider: Estela TANG, fetl grth, 1st 7 700 Ora PO Box tri, [email or web address] weeks [facility], 1522, gestation of Center [address] [place], [place], 120, Center [id number], [place], [address], [place], tel: [phone] [place], [address]. , [place]. tel: tel: [phone] [facility] [place] Encannie screen for Jun- Wan Referring In Womens infections w sexl 5-201 Sherrie. Provider: [facility], mode of 7 700 Ora PO Box [facility], 1522, r for screening Center [address] [place], for oth , [facility], infec/parastc 120, Center [id number], diseasesEncntr [place], [address], [place] for suprvsn of [place], tel: normal first [phone] [place], [address]. preg, first , [place]. tel: trimesterEncounte tel: [phone] r for [phone] screening of mother9 weeks gestation of Family [...] Insurance type Covered alliance party ID Authorization(s) [facility] [place] [id number] [facility] [place] [id number] [facility] [id number] Social History Type Description Quantity Date Captured Alcohol Use Details No Caffeine Use Details Unknown Tobacco Use Status Unknown Smoking Status Never smoker Vital Signs Date / Height Weight BMI Pulse Blood Temperature Respiratory Body Head BMI Time: Rate Pressure Rate Surface Circumference percentile Area 158.50 28.0 117/76 lbs 7 mm[Hg] 9:52 kg/m AM eter (2) Chief Complaint And Reason For Visit Unknown Chief Complaint And Reason For Visit Reason For Referral Reason For Referral Unknown Plan Of Care Date Type Action Status Appointment Joya Stewart BOOKED Future Order: Radiology Order Complete OB Ultrasound > 14 Ordered Weeks ([id number]) Date Type Problem Goal Intervention Status Start [...]
--- OUTSIDE RECORDS SUMMARY | 2017-02-01 00:53 | External Medical Summary | Continuity of Care Document ---
:1990 Author Organization [facility] Address [address] [place], [place] [id number] Phone Care Team Providers Name Role Phone Junitoshraddha DO, Ora Unavailable Unavailable Allergies, Adverse Reactions, Alerts Substance Reaction Severity Status hydrocortisone rash Unknown Active Medications Medication Instructions Dosage Effective Dates Status Comments (start - stop) Vitamin take 1 tablet by Not Available - Active tablet oral route every day Upsl-Ljjf-Qpels - Active (vit C-biotin) 50 mg-1,250 mcg chewable tablet Problems Condition Effective Dates (start - stop) Clinical Status Encntr for suprvsn of normal first - preg, third trimester 34 weeks gestation of - Encntr screen for [...] - Type B blood, Rh negative - 36 weeks gestation of - Encntr for suprvsn of normal first - preg, third trimester Encounter for screening of - mother Procedures Procedure Date OB Visit No Charge Results Test Name Date and Time Measure Units Reference Range Abnormal Flag Comments Unknown Advance Directives Directive Yes / No Effective Date File Name Unknown Encounters Encounter Practice Location Reason(s) Diagnoses Date Provider Care Team Description For Visit Members Lola Parkr for Sep-2 Wan Referring In Womens suprvsn of normal 8-201 Sherrie. Provider: Health PA, first preg, third 7 700 Ora PO Box [email or web address] weeks Medical Paty Kline, 1522, gestation of Center [address], , [facility], 120, [place] [id number], [place], [address], [place], tel:[phone] [place], [address]. [address] , [place]. tel:+ tel: [phone] Lola Ledezma Decreased Sep-2 Wan Referring In Womens movements, third 7-201 Sherrie. Provider: Health PA, trimester, [email or web address] 7 700 Ora PO Box weeks gestation Medical [facility], 1522, of Center [facility] [place], , [facility], 120, Center [id number], [place], [address], [place], tel:+ [phone] [place], [address]. , [place]. tel: tel: [phone] Lola Ledezma 36 weeks Sep-2 Wan Referring In Womens gestation of 1-201 Sherrie. Provider: Health KITTY, pregnancyEncntr 7 700 Ora PO Box for suprvsn of Medical [facility], 1522, normal first Center [facility] [place], preg, third , [facility] [place], trimesterEncounte 120, Center [id number], r for [place], [address], [place] screening of [place], tel:+ [phone] [place], [address]. , [place]. tel: tel: [phone] Lola Parkr for Sep-0 Wan Referring In Womens suprvsn of normal 8-201 Sherrie. Provider: Estela TANG, first preg, third 7 700 Ora PO Box [facility] , 1522, gestation of Center [facility] [place], , [facility], 120, Center [id number], [place], [address], [place], tel:+ [phone] [place], [address]. , [place]. tel: tel: [phone] Lola Partida for Aug-2 Wan Referring In Womens suprvsn of normal 4-201 Sherrie. Provider: Health KITTY, first preg, third 7 700 Ora PO Box weeks Medical [facility], 1522, gestation of Center [facility] [place], , [facility] [place], 120, Center [id number], [address], [place], tel:[phone] [place], [address]. , [place]. tel: tel: [phone] Lola Partida for Aug- Wan Referring In Womens suprvsn of normal 1-201 Sherrie. Provider: Health PA, first preg, third 7 700 Ora PO Box [email or web address] weeks Medical Slechta B, 1522, gestation of Center [address] [place] [address], [place], 120, Center [id number], [place], [address], [place], tel:[phone] [place], [address] , [place]. tel: tel: [phone] Lola [place]zma Encntr for Oct-2 Wan Referring In Womens suprvsn of normal 8-201 Sherrie. Provider: Health KITTY, first preg, third 7 700 Ora PO Box [email or web address] weeks Medical [facility], 1522, gestation of Center [address] [place] [address], pregnancyType B [place], blood, Rh 120, Center [id number], negative [place], [address], [place], tel:[phone] [place], [address]. , [place]. tel: tel: [phone] Lola [place]zma Encntr for Oct- Wan Referring In Womens suprvsn of normal 3-201 Sherrie. Provider: Estela TANG, first preg, 7 700 Ora PO Box second Medical [facility], 1522, [email or web address] [facility], gestation of [place], 120, Center [id number], [place], [address], [place], tel:[phone] [place], [address]. , [place]. tel: tel: [phone] Lola L[place]zma Encntr for Shayan-2 Goldberg Referring In Womens suprvsn of normal 7-201 Elvia. Provider: Health KITTY, first preg, 7 700 Ora PO Box second Medical [facility], 1522, [email or web address] weeks Center [address] [place] [address], gestation of [place], 120, Center [id number], [place], [address], [place], tel:[phone] [place], [address] , [place]. tel: tel: [phone] Lola L[place]zma Encntr for Shayan-1 Wan Referring In Womens suprvsn of normal 4-201 Sherrie. Provider: Health KITTY, first preg, 7 700 Ora PO Box second Medical Sle[facility]ta B, 1522, [email or web address] weeks Center [address], gestation of [place], 120, Center [id number], [place], [address], [place], tel: [phone] [place], [address]. , [place]. tel: tel: [phone] Lola [place]ma Encntr for May- Wan Referring In Womens suprvsn of normal 7-201 Sherrie. Provider: Health KITTY, first preg, 7 700 Ora PO Box second Medical Slechta B, 1522, [email or web address] weeks Center [address], gestation of [place], 120, Center [id number], [place], [address], [place], tel:[phone] [place], [address]. , [place]. tel: tel: [phone] Lola Ledezma Matern care for May- Wan Referring In Womens Ultrasound oth or susp poor 7-201 Sherrie. Provider: Estela TANG, fetl grth, 05 22 700 Ora PO Box tri, unspEncntr Medical [facility], 1522, for suprvsn of Center [address] [place], normal first [place], preg, second 120, Center [id number], [email or web address] weeks [place], [address], [place] gestation of [place], tel: [phone] [place], [address]. , [place]. tel: tel: [phone] Lola Ledezma Matern care for Apr-1 Wan Referring In Womens oth or susp poor 2-201 Sherrie. Provider: Estela TANG, fetl grth, 7 700 Ora PO Box tri, [email or web address] weeks Medical Sle[facility], 1522, gestation of Center [address], [place], 120, Center [id number], [place], [address], [place], tel: [phone] [place], [id number]. [id number] , [place]. tel: tel: [phone] [facility] [place] Encntrafat screen for Jun- Wan Referring In Womens infections w sexl 5-201 Sherrie. Provider: Health PA, mode of 7 700 Ora PO Box transmissEncounte Medical Slechta B, 1522, r for screening Center [address], for oth , [facility] Medical [place], infec/parastc 120, Center [id number], diseasesEncntr [place], [address], [place] for suprvsn of [place], tel: normal first [phone] [place], [address]. [id number] preg, first , [place]. tel: trimesterEncounte tel: [phone] r for [phone] screening of mother9 weeks gestation of Family [...] name Insurance type Covered republican ID Authorization(s) [facility] [id number] [facility] [id number] [facility] [id number] Social History Type Description Quantity Date Captured Alcohol Use Details No Caffeine Use Details Unknown Tobacco Use Status Unknown Smoking Status Never smoker Vital Signs Date / Height Weight BMI Pulse Blood Temperature Respiratory Body Head BMI Time: Rate Pressure Rate Surface Circumference percentile Area 152.40 26.9 110/74 lbs 9 mm[Hg] 10:34 kg/m AM eter (2) 7 10:30 kg/m AM eter (2) Chief Complaint And Reason For Visit Unknown Chief Complaint And Reason For Visit Reason For Referral Reason For Referral Unknown Plan Of Care Date Type Action Status Appointment Joya Stewart BOOKED Appointment Joya Stewart BOOKED Future Order: Radiology Order Complete OB Ultrasound > 14 Ordered Weeks (89116) Date Type Problem Goal Intervention Status Start [...]
--- OUTSIDE RECORDS SUMMARY | 2017-02-01 00:53 | External Medical Summary | Continuity of Care Document ---
:1990 Author Organization [facility] Allergies Active Description Code Type Severity Reaction Onset Reported/ Identified Relationship Clinical to Patient Status Yes hydrocortiso 2147 1 N/A rash ne Yes No Known 78662 3 N/A N/A Drug 0 Allergies Medications Problems Date Dx Coded Attending Type Code Diagnosis Diagnosed By 12/13/2014 Naida Rondon V72.40 Lab Screening For S , Unconfirmed 08/29/2016 Sherrie Wan O36.5920 Matern care for oth or susp poor fetl grth, 2nd tri, unsp 08/29/2016 Sherrie Wan Z34.02 Encntr for suprvsn of normal first preg, second trimester 08/29/2016 Sherrie Wan Z3A.18 18 weeks gestation of 08/29/2016 Sherrie Wan Z34.02 Encntr for suprvsn of normal first preg, second trimester 08/29/2016 Sherrie Wan Z3A.18 18 weeks gestation of 08/29/2016 Sherrie Wan Z34.02 Encntr for suprvsn of normal first preg, second trimester 08/29/2016 Sherrie Wan Z3A.18 18 weeks gestation of 11/09/2016 Sherrie Wan Z34.02 Encntr for suprvsn of normal first preg, second trimester 11/09/2016 Sherrie Wan Z3A.18 18 weeks gestation of 01/09/2017 W O36.8130 Decreased movements, third trimester, unsp 01/10/2017 W Z34.03 Encntr for suprvsn of normal first preg, third trimester 01/10/2017 W Z3A.37 37 weeks gestation of 01/10/2017 W Z34.03 Encntr for suprvsn of normal first preg, third trimester 01/10/2017 W Z3A.37 37 weeks gestation of 01/14/2017 W O36.8130 Decreased movements, third trimester, unsp 01/14/2017 W Z3A.37 37 weeks gestation of Procedures Code Description Performed By Performed On 12/09/2014 91816 Venpnctr fngr/heel/ear stick routne 12/09/2014 00372 Chorionic gonadotropin assay 08/29/2016 60197 Ultrasnd exam of preg uterus, compl OB 08/29/2016 78713 Visit No Charge 01/09/2017 46613 non-stress test OB 01/09/2017 89197 Visit No Charge OB 01/10/2017 18891 Visit No Charge 01/10/2017 38914 Immuniz admnin, 1 vac, sngl/combo Flu 01/10/2017 44721 Vaccine - Quadrivalent Results Encounters ACCT No. Visit Discharge Status Pt. Type Provider Facility Loc./Unit Complaint Date/Time [id number] 01/03/2017 01/03/2017 CLS Outpatient Wan, 09:20:00 23:59:59 Sherrie Moreno [id number] 12/21/2016 12/21/2016 CLS Outpatient Wan, 10:30:00 23:59:59 Sherrie Moreno [id number] 12/06/2016 12/06/2016 CLS Outpatient Wan, 10:45:00 23:59:59 Sherrie Moreno [id number] 11/23/2016 11/23/2016 CLS Outpatient Wan, 10:20:00 23:59:59 Sherrie Moreno [id number] 11/09/2016 11/09/2016 CLS Outpatient Wan, 09:00:00 23:59:59 Sherrie Moreno [id number] 10/25/2016 10/25/2016 CLS Outpatient Wan, 10:35:00 23:59:59 Sherrie Moreno [id number] 10/09/2016 10/09/2016 CLS Outpatient [place], 14:00:00 23:59:59 Elvia Vergara [id number] 10/09/2016 10/09/2016 CLS Outpatient Wan, 11:35:00 23:59:59 Sherrie Moreno [id number] 09/26/2016 09/26/2016 CLS Outpatient Wan, 13:50:00 23:59:59 Sherrie Moreno [id number] 08/29/2016 08/29/2016 CLS Outpatient Wan, 13:15:00 23:59:59 Sherrie Moreno [id number] 08/29/2016 08/29/2016 CLS Outpatient Wan, 12:45:00 23:59:59 Sherrie Moreno [id number] 08/27/2016 08/27/2016 CLS Outpatient Wan, 09:54:00 23:59:59 Sherrie Moreno [id number] 2016 2016 CLS Outpatient Wan, 16:00:00 23:59:59 Sherrie Moreno [id number] 06/27/2016 06/27/2016 CLS Outpatient Wan, 13:15:00 23:59:59 Sherrie Moreno [id number] 12/09/2014 12/09/2014 CLS Outpatient [place], 13:22:00 23:59:59 Naida Vergara [id number] 01/29/2017 Document 14:45:00 Registration [id number] 01/24/2017 Document 10:00:00 Registration [id number] 01/15/2017 Document 15:15:00 Registration [id number] 01/10/2017 Document 09:50:00 Registration [id number] 01/09/2017 Document 11:00:00 Registration
--- OUTSIDE RECORDS SUMMARY | 2017-02-01 00:53 | External Medical Summary | Continuity of Care Document ---
:1990 Author Organization [facility] Address [address] [place], [place] [address] Phone Care Team Providers Name Role Phone Junitoshraddha DO, Ora Unavailable Unavailable Allergies, Adverse Reactions, Alerts Substance Reaction Severity Status hydrocortisone rash Unknown Active Medications Medication Instructions Dosage Effective Dates Status Comments (start - stop) Vitamin take 1 tablet by Not Available - Active tablet oral route every day Dmoa-Iiwt-Rokpm - Active (vit C-biotin) 50 mg-1,250 mcg chewable tablet Problems Condition Effective Dates (start - stop) Clinical Status Encntr for suprvsn of normal first - preg, third trimester 28 weeks gestation of - Type B blood, Rh negative - Encntr screen for infections w sexl - mode of transmiss Encounter for screening for oth - infec/parastc diseases Encntr for suprvsn of normal first - preg, first trimester Encounter for screening of - mother 9 weeks gestation of - Matern care for oth or susp poor fetl - gr, 1st tri, unsp 13 weeks gestation of [...] third trimester 30 weeks gestation of - Procedures Procedure Date Injection Administration OB Visit No Charge Antibody Screen, RBC Glucose test Hemoglobin count, colorimetric Hematocrit blood count Venpnctr fngr/heel/ear stick routne Rhophylac 100 Units Results Test Name Date and Time Measure Units Reference Range Abnormal Flag Comments Panel Description: Glucose [Mass/volume] in Serum or Plasma --1 hour post 50 g glucose PO GLUCOSE, 118 mg/dL <140 N Test performed at [facility] 09:29:00 [facility] [id number] ([id number])-[id number] [place] [address]Mdzsyjdr: LIANNA SANABRIA DO,MPH Panel Description: HEMOGLOBIN + HEMATOCRIT HEMOGLOBIN 09:29:00 12.5 g/dL 11.7-15.5 N HEMATOCRIT 09:29:00 37.4 % 35.0-45.0 N Test performed at [facility] [id number] [place] [address]Oukvcaad: LIANNA SANABRIA DO,MPH Panel Description: ANTIBODY SCREEN, RBC W/REFL ID, TITER AND AG ANTIBODY SCREEN, NO ANTIBODIES N Reference RBC W/REFL ID, 09:29:00 DETECTED range No TITER AND AG antibodies detected This assay is a screening test for the detection of red blood cell antibodies. The test is not to be used for pretransfusion screening or for the medical management of an alloimmunized . Test performed at [facility] [id number] [place] [address]Hvsxsdkp: LIANNA SANABRIA DO,MPH Advance Directives Directive Yes / No Effective Date File Name Unknown Encounters Encounter Practice Location Reason(s) Diagnoses Date Provider Care Team Description For Visit Members Lola Lubinntr for Nov- Wan Referring In Womens suprvsn of normal 1-201 Sherrie. Provider: Estela TANG, first preg, third 7 700 Ora PO Box [email or web address] weeks Medical Slechta B, 1522, gestation of Center [address] [place] [address], , [facility], 120, Center [id number], [place], [address], [place], tel:[phone] [place], [address]. , [place]. tel: tel: [phone] Lola [place] Encntr for Oct- Wan Referring In Womens suprvsn of normal 8-201 Sherrie. Provider: Estela TANG, first preg, third 7 700 Ora PO Box [email or web address] weeks Medical Slechta B, 1522, gestation of Center [address] [place] [address], pregnancyType B , [facility] [place], blood, Rh 120, Center [id number], negative [place], [address], [place], tel:[phone] [place], [address]. , [place]. tel: tel: [phone] Lola [place] Encntr for Wan Referring In Womens suprvsn of normal 3-201 Sherrie. Provider: Estela TANG, first preg, 7 700 Ora PO Box second Medical [place], 1522, [email or web address] weeks Center [address] [place], gestation of [place], 120, Center [id number], [place], [address], [place], tel:+ [phone] [place], [address]. , [place]. tel: tel: [phone] Lola L[place]zma Encntr for Shayan-2 Goldberg Referring In Womens suprvsn of normal 7-201 Elvia. Provider: Estela TANG, first preg, 7 700 Ora PO Box second Medical [place], 1522, [email or web address] weeks Center [address] [place], gestation of [place], 120, Center [id number], [place], [address], [place], tel: [phone] [place], [address]. , [place]. tel: tel: [phone] Lola L[place]zma Encntr for Shayan-1 Wan Referring In Womens suprvsn of normal 4-201 Sherrie. Provider: Estela TANG, first preg, 7 700 Ora PO Box second Medical [place], 1522, [email or web address] weeks Center [address] [place], gestation of [place], 120, Center [id number], [place], [address], [place], tel:[phone] [place], [address]. , [place]. tel: tel: [phone] Lola Ledezma Encntr for May-1 Wan Referring In Womens suprvsn of normal 7-201 Sherrie. Provider: Estela TANG, first preg, 7 700 Ora PO Box second Medical [place] [facility], 1522, [email or web address] weeks Center [address] [place], gestation of [place], 120, Center [id number], [place], [address], [place], tel:[phone] [place], [address]. , [place]. tel: tel: [phone] Lola Ledezma Matern care for May-1 Wan Referring In Womens Ultrasound oth or susp poor 7-201 Sherrie. Provider: Estela TANG, fetl grth, 2nd 7 700 Ora PO Box tri, unspEncntr Medical Sle[place]ta B, 1522, for suprvsn of Center [address] [place], normal first [place], preg, second 120, Center [id number], [email or web address] weeks [place], [address], [place] gestation of [place], tel:+ [phone] [place], [address]. , [place]. tel: tel: [phone] Lola Ledezma Matern care for Apr-1 Wan Referring In Womens oth or susp poor 2-201 Sherrie. Provider: Estela TANG, fetl ranjith, 1st 7 700 Ora PO Box tri, [email or web address] weeks Medical Sleshraddha Kline, 1522, gestation of Center [address] [place], , [facility] [place], 120, Center [id number], [place], [address], [place], tel:+ [phone] [place], [address]. [address] , [place]. tel: tel: [phone] [facility] [place] [facility]- Wan Referring In Womens infections w sexl 5-201 Sherrie. Provider: Estela TANG, mode of 7 700 Ora PO Box transmissEncounte Medical Paty Kline, 1522, r for screening Center [address] [place] [address], for oth , [facility] [place], infec/parastc 120, Center [id number], diseasesEncntr [place], [address], [place] for suprvsn of [place], tel:+ normal first [phone] [place], [address]. preg, first , [place]. tel: trimesterEncounte tel: [phone] r for [phone] screening of mother9 weeks gestation of Family [...] Insurance type Covered alliance party ID Authorization(s) [facility] [id number] [facility] [id number] Social History Type Description Quantity Date Captured Alcohol Use Details No Caffeine Use Details Unknown Tobacco Use Status Unknown Smoking Status Never smoker Vital Signs Date / Height Weight BMI Pulse Blood Temperature Respiratory Body Head BMI Time: Rate Pressure Rate Surface Circumference percentile Area 146.30 25.9 126/83 -2017 lbs 1 mm[Hg] 9:26 kg/m AM eter (2) 4 9:24 kg/m AM eter (2) Chief Complaint And Reason For Visit Unknown Chief Complaint And Reason For Visit Reason For Referral Reason For Referral Unknown Plan Of Care Date Type Action Status Appointment Joya Stewart BOOKED Future Order: Radiology Order Complete OB Ultrasound > 14 Ordered Weeks (05572) Date Type Problem Goal Intervention Status Start [...]
[2017-02-01] MEDS ORDERED: AMPICILLIN 2 GM in NS 100 ML IV ONE (01:00)
[2017-02-01] MEDS ORDERED: D5LR 1,000 ML IV SCH (01:00)
[2017-02-01] MEDS: LR 1,000 ML IV PRN ×3 (01:06→04:45)
[2017-02-01] MEDS ORDERED: ROPIVACAINE 1% 10MG/ML INJ 200 MG, SUFentanil 50 MCG in NS 100 ML EPI PRN (01:46)
[2017-02-01] MEDS ORDERED: ONDANSETRON 4 MG/2 ML INJECTION IVP PRN (01:46)
[2017-02-01] MEDS ORDERED: NALOXONE 0.4 MG/ML INJECTION IVP PRN (01:46)
[2017-02-01] MEDS ORDERED: DiphenhydrAMINE 50 MG/ML INJECTION IVP PRN (01:46)
--- NOTE | 2017-02-01 01:46 | Anesthesia Preoperative Report ---
Anesthesia Epidural/Spinal Rec - Date and Time Date: 02/01/17 Preoperative Diagnosis: Procedure: Labor Epidural Plan: Epidural - Vital Signs /Para: P:0 - Medictaions & Allergies Inpatient Medications: Current Medications Acetaminophen (Tylenol) 500 - 1,000 mg PO Q4H PRN PRN Reason: Pain Al Hydroxide/Mg Hydroxide (Maalox Plus) 30 ml PO Q3H PRN PRN Reason: Indigestion Calcium Carbonate (Tums) 500 - 1,000 mg PO Q2H PRN PRN Reason: Indigestion Carboprost Tromethamine (Hemabate) 250 mcg IM O PRN PRN Reason: .Downtime Ampicillin Sodium 2 gm/ Sodium (Chloride) 100 mls @ 200 mls/hr IV O ONE Stop: 02/01/17 01:29 Ampicillin Sodium 1 gm/ Sodium (Chloride) 100 mls @ 200 mls/hr IV Q4H NADIA Dextrose/Lactated Ringer's (Dextrose 5%-Lactated Ringers) 1,000 mls @ 125 mls/ hr IV .Q8H NADIA Lactated Ringer's (Lactated Ringers) 1,000 mls @ 999 mls/hr IV .Q1H1M PRN Methylergonovine Maleate (Methergine) 0.2 mg IM O PRN Misoprostol (Cytotec) 800 mcg SD ONCE PRN Allergies/Adverse Reactions: Allergies Allergy/AdvReac Type Severity Reaction Status Date / Time No Known Allergies Allergy Verified 01/14/17 11:19 - Home Medications Home Medications: Home Medications Medication Instructions Recorded Confirmed Type Benadryl 01/14/17 History Hair, Skin and Nails Tablet 01/14/17 History Magnesium 01/14/17 History Vitamins 01/14/17 History Zyrtec 01/14/17 History - Surgical History Anesthesia Reactions: None Hx Family Anesthesia Reaction: No History of Motion Sickness: No - Social History Smoking Status: Never smoker Second Hand Exposure: No Substance Use Type: does not use Alcohol Intake Frequency: does not drink Hx Chewing Tobacco Use: No - Pertinent Findings EKG Rhythm: Normal Sinus Rhythm - Physical Exam Respiratory Exam: lungs clear Cardiovascular Exam: regular rate and rhythm, no murmur - Airway Assessment Mallampati Score: II TMD: 3 Fingerbreadths Neck Extension: good Overall Assessment: no airway concerns - ASA ASA Score: 2 - Discussion Discussion: Discussed risks/options/alternatives of anesthesia and questions answered. Patient consents. Nursing pain assessment noted. Anesthesia Discussion: spouse Attestation Statement: Prior to the delivery of any anesthetic medication, I examined the patient, developed the plan, obtained the patient's consent and discussed the risk and benefits of the procedure with the patient/guardian.
[2017-02-01] MEDS ORDERED: AMPICILLIN 1 GM in NS 100 ML IV SCH (05:00)
[2017-02-01] MEDS ORDERED: RHOPHYLAC - PHARMACY CONSULT MC ONE (06:47)
[2017-02-01] MEDS ORDERED: DiphenhydrAMINE 25 MG CAPSULE PO PRN (06:47)
[2017-02-01] MEDS ORDERED: OXYTOCIN DRIP 30 UNIT/500 ML ML IV SCH (06:47)
[2017-02-01] MEDS ORDERED: HYDROCORTISONE 2.5% CREAM 30gm RECTALLY PRN (06:47)
--- NOTE | 2017-02-01 11:27 | Pharmacy Consult ---
Pharmacy Consult-Rhophylac - Laboratory Information 02/01/17 02/01/17 01:08 07:46 Blood Type B Negative RhIG Candidate? Not a candidate - Consult Information Per blood bank report, not a candidate for RhIG Thank you.
[2017-02-01] MEDS: DOCUSATE CALCIUM 240 MG CAPSULE PO SCH (12:12)
[2017-02-01] MEDS: HYDROCODONE/APAP 5mg/325mg TABLET PO PRN (12:12)
[2017-02-01] MEDS: IBUPROFEN 800 MG TABLET PO PRN ×3 (12:14→21:25)
--- NOTE | 2017-02-01 15:05 | Labor and Delivery Note ---
DATE OF DELIVERY 02/01/2017 DELIVERY NOTE Joya is a 26-year-old 1 at 40 weeks 4 days gestational age who presented to [facility] with complaints of contractions and was found to be 5 cm dilated. She was admitted and received an epidural. Her membranes ruptured spontaneously returning clear fluids. She was also started on ampicillin for her group B strep status. When she was 8 cm dilated, baby started having intermittent late decelerations. She was repositioned, given a fluid bolus and started on oxygen. The late decelerations resolved, so she was allowed to continue laboring, but I did call a crew to come in and be on standby. We discussed the possibility of an operative vaginal delivery or C- section for late decelerations. She then progressed on to complete dilation. She pushed for a short time, but the late decelerations returned. When she stopped pushing and labored down, the late decelerations resolved for a while. The late decelerations returned one final time and so she was consented for a trial of forceps. Baby was at the +3 of 5 station and in the DESIREE position. Risks of forceps were explained to the patient and her including, but not limited to, nerve injury, scalp laceration and bleeding in the brain. The closed Chun forceps were easily placed and articulated. The baby's head was brought down to in one contraction. The forceps were removed and the head was delivered the rest of the way. Baby was vigorous at delivery, so he was placed on mom's abdomen and the cord clamping was delayed for more than 2 minutes. The baby is a viable male , Apgars 7/9, weight 3235 g, name "[place]." The placenta delivered spontaneously. She had a long vaginal laceration that was just right of midline that was repaired with running locked 2-0 Vicryl. This extended down into a second-degree laceration of the perineal body. The skin laceration, however, started on the left labia and went through the hymen partially up the right labia in a J orientation. This was closed with running 2-0 chromic. She also had a right periurethral laceration that was repaired with 2-0 chromic. Mom and baby tolerated the delivery well. [facility]
--- NOTE | 2017-02-02 07:50 | OB/GYN Progress Note ---
OB-PP Progress Note - General PPD1 Maternal Group B Strep: Positive Maternal blood type: B- Maternal Rubella Status: Immune - Subjective Date: 02/02/17 Lochia: Moderate Pain: controlled Voiding: voiding Nausea or Vomiting Present: No - Objective Vital Signs: Last Vital Signs Temp 97.7 F 02/02/17 03:30 Pulse 76 02/02/17 03:30 Resp 16 02/02/17 03:30 BP 132/90 H 02/02/17 03:30 Pulse Ox 99 02/02/17 03:30 General: alert and oriented Respiratory: non-labored Abdomen: fundus firm, non-tender Extremities: non-tender Edema: none - Assessment Assessment: SP, FAVD - Plan Plan: routine care (Plan dismissal PPD #2 for GBS +)
[2017-02-02] MEDS: DOCUSATE CALCIUM 240 MG CAPSULE PO SCH (10:29)
[2017-02-02] MEDS: HYDROCODONE/APAP 5mg/325mg TABLET PO PRN (10:30)
[2017-02-02] MEDS: IBUPROFEN 800 MG TABLET PO PRN ×2 (10:30→19:14)
[2017-02-02 19:45] VITALS: RESP 18
--- NOTE | 2017-02-03 08:46 | OB/GYN Progress Note ---
OB-PP Progress Note - General PPD2 Maternal Group B Strep: Positive Maternal blood type: B- Maternal Rubella Status: Immune - Subjective Date: 02/03/17 Lochia: Minimal Pain: controlled Voiding: voiding Nausea or Vomiting Present: No - Objective Vital Signs: Last Vital Signs Temp 97.7 F 02/03/17 03:36 Pulse 74 02/03/17 03:36 Resp 18 02/03/17 03:36 BP 123/71 02/03/17 03:36 Pulse Ox 99 02/03/17 03:36 General: alert and oriented Respiratory: non-labored Abdomen: fundus firm Extremities: non-tender - Assessment Assessment: SP, , GBS positive - Plan Plan: routine care (Dismissal to home today. )
--- NOTE | 2017-02-03 08:49 | Discharge Instructions ---
Discharge Plan - Med Rec/Dispo Referrals/Follow Up: Sherrie Wan MD [Physician] - [place] Instructions: [facility] Vaginal Delivery Additional Instructions: PPV 6 weeks. Prescriptions: New Hydrocodone/APAP 5/325 [Vonore 5/325] 1 - 2 tab PO Q4H PRN #20 tab PRN Reason: Pain CALCIUM CARBONATE Chewable [Tums] 500 - 1,000 mg PO Q2H PRN tab.chew PRN Reason: Indigestion Ibuprofen [Motrin] 800 mg PO Q8H PRN #30 tab PRN Reason: Pain Continue Vitamins Zyrtec Hair, Skin and Nails Tablet Magnesium Discontinued Benadryl - Disposition 01 Discharged Home, Self-Care
[2017-02-03] MEDS: IBUPROFEN 800 MG TABLET PO PRN (09:12)
[2017-02-03] MEDS: DOCUSATE CALCIUM 240 MG CAPSULE PO SCH (09:12)
[2017-02-03 12:01] VITALS: BP 115/79; PULSE 83; TEMP 98.2; O2SAT 98
== END 2017-02-03 12:20 | disposition home or self-care (01) | DRG 775 ==
LOC: MC 02-01 00:43
PROVIDERS: ADMIT Obstetrics & Gynecology; ATTEND Obstetrics & Gynecology